=== PATIENT | male | born 1985 | race Two or more races ===

== ENCOUNTER 2022-12-18 19:02 | Emergency (ER) | payer MEDICAID ==
[~2022-12-18] VITALS: Ht 177.8 cm; Wt 113.5 kg
[2022-12-18 23:09] VITALS: BP 141/77
[2022-12-18] MEDS ORDERED: LIDOCAINE 1% HCL (LOCAL ANESTH.) INJ 20ML MDV IJ ONE (23:30)
[2022-12-18] MEDS ORDERED: IBUP800T27 PO (23:58)
[2022-12-19] MEDS ORDERED: IBUPROFEN 800 MG TAB PO ONE
== END 2022-12-19 00:06 | disposition home or self-care (01) ==
LOC: ER 19:02
DX: L60.0 Ingrowing nail (principal)
CPT/HCPCS: 11730; 99284; J2001